=== PATIENT | male | born 1980 | race American Indian/Alaskan Native ===

== ENCOUNTER 2019-04-26 12:34 | Inpatient (IN) | payer OTHER ==
[2019-04-26] MEDS ORDERED: NACL 0.9% 1000 ML IV ONE ×2 (12:48→13:10)
--- NOTE | 2019-04-26 12:54 | Event Note ---
ED Screening Note ED Screening Note: TO TRIAGE VIA EMS AGITATED AND DC INT PER EMS NO TRAUMA REPORTED FROM EMS PER RN LETHARGIC IN TRIAGE - AMS DIAPHORETIC WITH NORMAL TEMP DENIES PMH/PSH/RX DENIES DRUGS/ETOH/CIG POOR INFORMANT DUE TO LETHARGY CHARGE NURSE AWARE This initial assessment/diagnostic orders/clinical plan/treatment(s) is/are subject to change based on patients health status, clinical progression and re- assessment by fellow clinical providers in the ED. Further treatment and workup at subsequent clinical providers discretion. Patient/guardian urged not to elope from the ED as their condition may be serious if not clinically assessed and managed. Initial orders include: AMS- RO SEPSIS/DEHYDRATION/ACUTE NEURO EVENT/RO ACS TO MAIN
--- NOTE | 2019-04-26 13:33 | XRay Report ---
CHEST 1 VIEW INDICATION: chills, DIAPHORETIC, NAUSEA VOMITTING. COMPARISON: None FINDINGS: SUPPORT DEVICES: None. HEART / MEDIASTINUM: No significant abnormality. LUNGS / PLEURA: No significant pulmonary or pleural abnormality. No pneumothorax. ADDITIONAL FINDINGS: IMPRESSION: 1. No acute findings. Signer Name: Orlin Sosa MD Signed: 04/26/2019 1:29 PM Workstation Name: [id number]
[2019-04-26 13:40] LABS: Amphetamine Screen,Urine PRESUMPTIVE NEGATIVE; Benzodiazepines Screen,Urine PRESUMPTIVE NEGATIVE; Cocaine Screen,Urine PRESUMPTIVE NEGATIVE; Methadone Screen,Urine PRESUMPTIVE NEGATIVE; Opiate Screen,Urine PRESUMPTIVE NEGATIVE
[2019-04-26] MEDS ORDERED: ZOFRAN ONE (13:44)
[2019-04-26 13:49] LABS: Mucus,Urine 3+ /HPF
[2019-04-26] MEDS ORDERED: ROCEPHIN/NS 2 GM/100 ML 2 GM/100 ML BAG IV ONE (13:49)
[2019-04-26 13:50] LABS: Bilirubin,Urine NEG (Negative); Blood,Urine NEG (Negative); Color,Urine Amber (Yellow); Urobilinogen,Urine < 2.0 mg/dL (<2.0)
[2019-04-26] MEDS ORDERED: ZOFRAN IV ONE (13:52)
[2019-04-26 13:56] LABS: Cannabinoid Screen,Urine PRESUMPTIVE POSITIVE
[2019-04-26] MEDS: NACL 0.9% 1000 ML 1,000 ML IV SCH (14:20)
[2019-04-26 14:37] LABS: Basophils # (Auto) 0.1 K/mm3 (0.0-0.1); Basophils % (Auto) 0.5 % (0.0-1.8); Hematocrit 48.3 % (35.5-45.6); Hemoglobin 16.3 gm/dl (11.8-15.2); Lymphocytes # (Auto) 1.5 K/mm3 (1.2-5.4); Lymphocytes % (Auto) 13.6 % (13.4-35.0); Mean Corpuscular HGB Conc 34 % (32-34); Mean Corpuscular Volume 86 fl (84-94); Monocytes # (Auto) 0.3 K/mm3 (0.0-0.8); Monocytes % (Auto) 2.8 % (0.0-7.3); Platelet Count 377 K/mm3 (140-440); Red Blood Count 5.64 M/mm3 (3.65-5.03); Red Cell Distribution Width 13.8 % (13.2-15.2)
[2019-04-26 14:47] LABS: INR 1.04 (0.87-1.13)
[2019-04-26 14:48] LABS: Partial Thromboplastin Time 26.4 Sec. (24.2-36.6)
[2019-04-26 15:00] LABS: Creatine Kinase MB 3.4 ng/mL (0.0-4.0)
[2019-04-26 15:02] LABS: Alanine Aminotransferase 24 units/L (7-56); BUN/Creatinine Ratio 14; Blood Urea Nitrogen 15 mg/dL (9-20); Calcium 10.3 mg/dL (8.4-10.2); Hemolysis Index 64
--- NOTE | 2019-04-26 15:06 | Emergency Department Report ---
ED General Adult HPI - General Chief complaint: Altered Mental Status Stated complaint: N/V Time Seen by Provider: 04/26/19 12:48 Source: patient Mode of arrival: Wheelchair Limitations: No Limitations - History of Present Illness Initial comments: 39-year-old man who woke up this morning sweaty and nauseated. He is a very poor historian. He is also poorly cooperative and difficult pain in the gurney. With a lot of encouragement, I was able to get historical information from him. He states he has had this once before, a few weeks ago. It resolved on its own and he did not go to get medical evaluation. He states that he is only taking Benadryl and Zyrtec for eczema. Denies any other medical history or previous surgery. Later he began to cough frequently and appears to be having posttussive emesis at the time of my encounter. He does not complain of shortness of breath. His pulse oximetry is 100%. His upper abdominal pain has resolved. He denied any chest pain pressure or tightness. He denied back pain. He stated the pain did not radiate. He stated he had a bowel movement but was not diarrhea. He had no signs of apparent GI bleeding. He presented to triage very diaphoretic. -: unknown (upon awakening) Location: abdomen Radiation: non-radiation Quality: aching Consistency: constant Improves with: none Worsens with: none Associated Symptoms: denies other symptoms - Related Data Home Medications Medication Instructions Recorded Confirmed Last Taken Cetirizine HCl [Zyrtec 10mg tab] 10 mg PO QDAY 04/26/19 04/26/19 04/26/19 diphenhydrAMINE [Benadryl CAP] 25 mg PO QHS 04/26/19 04/26/19 04/25/19 Allergies Allergy/AdvReac Type Severity Reaction Status Date / Time No Known Allergies Allergy Unverified 04/26/19 12:40 ED Review of Systems ROS: Stated complaint: N/V Other details as noted in HPI ED Past Medical Hx - Past Medical History Previous Medical History?: No - Surgical History Past Surgical History?: No - Social History Smoking Status: Current Every Day Smoker Substance Use Type: None - Medications Home Medications: Home Medications Medication Instructions Recorded Confirmed Last Taken Type Cetirizine HCl [Zyrtec 10mg tab] 10 mg PO QDAY 04/26/19 04/26/19 04/26/19 History diphenhydrAMINE [Benadryl CAP] 25 mg PO QHS 04/26/19 04/26/19 04/25/19 History ED Physical Exam - General Limitations: No Limitations ED Course Vital Signs 04/26/19 04/26/19 04/26/19 12:52 13:37 13:45 Temperature 97.4 F L Pulse Rate 72 Respiratory 22 Rate Blood Pressure 148/109 Blood Pressure [Right] O2 Sat by Pulse 100 98 100 Oximetry 04/26/19 04/26/19 04/26/19 13:49 14:00 14:15 Temperature 97.1 F L Pulse Rate 78 72 69 Respiratory 20 14 17 Rate Blood Pressure 153/107 158/106 Blood Pressure 158/106 [Right] O2 Sat by Pulse 98 100 97 Oximetry 04/26/19 14:31 Temperature Pulse Rate Respiratory Rate Blood Pressure 158/106 Blood Pressure [Right] O2 Sat by Pulse 100 Oximetry - Reevaluation(s) Reevaluation #1: On reexamination the patient has no shortness of breath. He is no longer sweating. He had some persistent nausea but is not vomiting. He has some nonproductive cough. He denies chest or abdominal pain. I repeated his EKG which shows some mild diffuse J-point elevation particularly in the anterior leads. However it is perhaps a little less pronounced than it was on the previous tracing. There is no reciprocal changes. Is not consistent with STEMI. Patient's CT of his head was negative. Urine was consistent with UTI. His abdominal CT showed colitis. Allergic cover him with Flagyl and Zosyn. IV fluids. For further patient for further care and evaluation appropriate consultation to Dr. Anders. Serial troponins are pending. Further diagnostic workup per Dr. Anders. Repeat evaluation of the patient's abdomen found it to be totally soft nontender without distention and normal bowel sounds present. 04/26/19 15:56 ED Medical Decision Making - Lab Data Result diagrams: 04/26/19 14:06 04/26/19 14:06 Laboratory Results - last 24 hr 04/26/19 04/26/19 04/26/19 12:54 13:23 13:23 WBC RBC Hgb Hct MCV MCH MCHC RDW Plt Count Lymph % (Auto) [place] % (Auto) Eos % (Auto) Baso % (Auto) Lymph # [place] # Eos # Baso # Seg Neutrophils % Seg Neutrophils # PT INR APTT Sodium Potassium Chloride Carbon Dioxide Anion Gap BUN Creatinine Estimated GFR BUN/Creatinine Ratio Glucose POC Glucose 140 H Lactic Acid Calcium Magnesium Total Bilirubin ALT Alkaline Phosphatase Total Creatine Kinase CK-MB (CK-2) CK-MB (CK-2) Rel Index Troponin T NT-Pro-B Natriuret Pep Total Protein Albumin Albumin/Globulin Ratio Lipase Urine Color Dariela Urine Turbidity Cloudy Urine pH 5.0 Ur Specific [place] 1.032 H Urine Protein 100 mg/dl Urine Glucose (UA) Neg Urine Ketones 20 Urine Blood Neg Urine Nitrite Neg Ur Reducing Substances Not Reportable Urine Bilirubin Neg Urine Ictotest Not Reportable Urine Urobilinogen < 2.0 Ur Leukocyte Esterase Sm Urine WBC (Auto) 26.0 H Urine RBC (Auto) 3.0 U Epithel Cells (Auto) 1.0 Urine Mucus 3+ Urine Opiates Screen Presumptive negative Urine Methadone Screen Presumptive negative Ur Barbiturates Screen Presumptive negative Ur Phencyclidine Scrn Presumptive negative Ur Amphetamines Screen Presumptive negative U Benzodiazepines Scrn Presumptive negative Urine Cocaine Screen Presumptive negative U Marijuana (THC) Screen Presumptive positive Drugs of Abuse Note Disclamer Blood Type 04/26/19 04/26/19 04/26/19 13:41 14:06 14:06 WBC 11.0 RBC 5.64 H Hgb 16.3 H Hct 48.3 H MCV 86 MCH 29 MCHC 34 RDW 13.8 Plt Count 377 Lymph % (Auto) 13.6 [place] % (Auto) 2.8 Eos % (Auto) 0.0 Baso % (Auto) 0.5 Lymph # 1.5 [place] # 0.3 Eos # 0.0 Baso # 0.1 Seg Neutrophils % 83.1 H Seg Neutrophils # 9.2 H PT INR APTT Sodium 141 Potassium 3.7 Chloride 103.4 Carbon Dioxide 18 L Anion Gap 23 BUN 15 Creatinine 1.1 Estimated GFR > 60 BUN/Creatinine Ratio 14 Glucose 172 H POC Glucose Lactic Acid Calcium 10.3 H Magnesium 1.90 Total Bilirubin 0.40 ALT 24 Alkaline Phosphatase 87 Total Creatine Kinase CK-MB (CK-2) CK-MB (CK-2) Rel Index Troponin T < 0.010 NT-Pro-B Natriuret Pep Total Protein 8.5 H Albumin 5.0 Albumin/Globulin Ratio 1.4 Lipase 18 Urine Color Urine Turbidity Urine pH Ur Specific [place] Urine Protein Urine Glucose (UA) Urine Ketones Urine Blood Urine Nitrite Ur Reducing Substances Urine Bilirubin Urine Ictotest Urine Urobilinogen Ur Leukocyte Esterase Urine WBC (Auto) Urine RBC (Auto) U Epithel Cells (Auto) Urine Mucus Urine Opiates Screen Urine Methadone Screen Ur Barbiturates Screen Ur Phencyclidine Scrn Ur Amphetamines Screen U Benzodiazepines Scrn Urine Cocaine Screen U Marijuana (THC) Screen Drugs of Abuse Note Blood Type A POSITIVE 04/26/19 04/26/19 04/26/19 14:06 14:06 14:06 WBC RBC Hgb Hct MCV MCH MCHC RDW Plt Count Lymph % (Auto) [place] % (Auto) Eos % (Auto) Baso % (Auto) Lymph # [place] # Eos # Baso # Seg Neutrophils % Seg Neutrophils # PT 13.3 INR 1.04 APTT 26.4 Sodium Potassium Chloride Carbon Dioxide Anion Gap BUN Creatinine Estimated GFR BUN/Creatinine Ratio Glucose POC Glucose Lactic Acid 3.50 H* Calcium Magnesium Total Bilirubin ALT Alkaline Phosphatase Total Creatine Kinase 417 H CK-MB (CK-2) 3.4 CK-MB (CK-2) Rel Index 0.8 Troponin T NT-Pro-B Natriuret Pep < 5 Total Protein Albumin Albumin/Globulin Ratio Lipase Urine Color Urine Turbidity Urine pH Ur Specific [place] Urine Protein Urine Glucose (UA) Urine Ketones Urine Blood Urine Nitrite Ur Reducing Substances Urine Bilirubin Urine Ictotest Urine Urobilinogen Ur Leukocyte Esterase Urine WBC (Auto) Urine RBC (Auto) U Epithel Cells (Auto) Urine Mucus Urine Opiates Screen Urine Methadone Screen Ur Barbiturates Screen Ur Phencyclidine Scrn Ur Amphetamines Screen U Benzodiazepines Scrn Urine Cocaine Screen U Marijuana (THC) Screen Drugs of Abuse Note Blood Type - EKG Data -: EKG Interpreted by Me EKG shows normal: sinus rhythm - EKG Data Interpretation: other (see above discussion serial EKGs were reviewed) - Radiology Data Radiology results: report reviewed (head no acute process, abdomen consistent with colitis) Critical care attestation.: If time is entered above; I have spent that time in minutes in the direct care of this critically ill patient, excluding procedure time. ED Disposition Clinical Impression: Colitis, Elevated lactic acid level, Abnormal EKG UTI (urinary tract infection) Qualifiers: Urinary tract infection type: site unspecified Hematuria presence: without hematuria Qualified Code(s): N39.0 - Urinary tract infection, site not specified Abdominal pain Qualifiers: Abdominal location: epigastric Qualified Code(s): R10.13 - Epigastric pain Disposition: -09 OP ADMIT IP TO THIS HOSP Is pt being admited?: Yes Does the pt Need Aspirin: Yes Condition: Stable Time of Disposition: 15:58
[2019-04-26] MEDS ORDERED: ZOSYN/NS 4.5GM/100ML 4.5 GM/100 ML VIAL IV ONE (15:09)
--- NOTE | 2019-04-26 15:27 | Cat Scan Report ---
CT ABDOMEN AND PELVIS WITHOUT CONTRAST HISTORY: Abdominal pain, epigastric pain COMPARISON: None. TECHNIQUE: Axial CT images were obtained through the abdomen and pelvis without IV contrast. Sagittal and coronal reformatted images. All CT scans at this location are performed using CT dose reduction for ALARA by means of automated exposure control. FINDINGS: CT ABDOMEN: Lung Bases: Clear. Liver: No significant abnormality. Biliary: No significant abnormality. Spleen: No significant abnormality. Unenlarged. Pancreas: No significant abnormality. Adrenals: No significant abnormality. Kidneys: No significant abnormality. Lymphatics: No lymphadenopathy. Vasculature: No significant abnormality. Bowel/Peritoneum: The colon is collapsed but there is suggestion of mild circumferential thickening o f the colon wall. A mild colitis could be considered. No inflammatory changes, free fluid or pneumato sis. Normal appendix. CT PELVIS: : No significant abnormality. Osseous Structures: No significant abnormality. Additional Findings: None IMPRESSION: Question mild colitis. Otherwise, unremarkable exam. Signer Name: Esteban Harp Jr, MD Signed: 04/26/2019 3:23 PM Workstation Name: [id number]
--- NOTE | 2019-04-26 15:30 | Cat Scan Report ---
CT head/brain wo con INDICATION / CLINICAL INFORMATION: 39 years Male; ams. TECHNIQUE: Routine CT head without contrast. All CT scans at this location are performed using CT dos e reduction for ALARA by means of automated exposure control. COMPARISON: None. FINDINGS: BRAIN / INTRACRANIAL CONTENTS: Small focus of decreased attenuation is seen in the periventricular re gion on the right, along the posterior body of the caudate. Age of this finding is indeterminate with out diffusion imaging by MRI. Otherwise, no acute hemorrhage, mass effect, midline shift, hydrocephalus, or acute, large territoria l infarct. No chronic infarct or focal atrophy. Normal brain volume and ventricular/sulcal size for a ge. No other significant white matter abnormality appreciated. CRANIOCERVICAL JUNCTION: No significant abnormality. ORBITS: No significant abnormality of visualized orbits. SINUSES / MASTOIDS: There is mild mucosal thickening in the ethmoids. Small mucous retention cyst/oren yp is seen in the left maxillary antrum. ADDITIONAL FINDINGS: None. IMPRESSION: 1. No focal mass, hemorrhage, hydrocephalus, or acute, large territorial infarct. Diffusion imaging m ay be helpful for further evaluation, if clinically warranted. Signer Name: Margarito Churchill MD, III Signed: 04/26/2019 3:25 PM Workstation Name: [id number]
[2019-04-26] MEDS ORDERED: ASPIRIN PO ONE (15:58)
[2019-04-26] MEDS ORDERED: NACL 0.9% 1000 ML 1,000 ML IV ONE (15:59)
[2019-04-26] MEDS: FLAGYL 500 MG/100 ML 500 MG/100 ML BAG IV SCH (16:45)
[2019-04-26] MEDS ORDERED: DILAUDID IV PRN (20:51)
[2019-04-26] MEDS ORDERED: SODIUM CHLORIDE FLUSH SYRINGE 10 ML IV PRN (20:51)
[2019-04-26] MEDS ORDERED: PHENERGAN PR PRN (20:51)
--- NOTE | 2019-04-26 21:24 | Event Note ---
Date: 04/26/19 See history and physical in the reports Acute colitis Urinary tract infection IV fluids
--- NOTE | 2019-04-26 21:56 | History and Physical Report ---
CHIEF COMPLAINT: 1. Altered sensorium. 2. Persistent vomiting. HISTORY OF PRESENT ILLNESS: A 39-year-old male with no significant past medical history, comes in for severe nausea, diaphoresis and persistent vomiting. The patient is a poor historian. Apparently, the patient has been vomiting since yesterday. Vomited about 10-15 times. Also coughing. No back pain. No diarrhea. Only vomiting. No fever or chills. Had some dysuria. PAST MEDICAL HISTORY: None. PAST SURGICAL HISTORY: None. SOCIAL HISTORY: Smokes about half a pack a day. FAMILY HISTORY: Hypertension. REVIEW OF SYSTEMS: Significant for persistent nausea, vomiting for about last 24 hours. Occasional abdominal pain. Diaphoresis. Otherwise, review of systems negative. PHYSICAL EXAMINATION: GENERAL: Young male, cooperative during examination. Slightly confused. VITAL SIGNS: Blood pressure is 158/106, temperature is 98, pulse is 59-87, respirations are 14, sats are 100%. HEENT: Unremarkable. Pupils equal and reactive. NECK: Supple, no lymphadenopathy, no thyromegaly. LUNGS: Clear to auscultation and percussion. Good air entry. CARDIOVASCULAR: S1, S2 heard. No gallop, no murmur, no rub. Apical impulse in left fifth intercostal space and midclavicular line. ABDOMEN: Soft and benign. No hepatosplenomegaly. No guarding, no rigidity. Hernial orifices are normal. EXTREMITIES: Good pedal pulses. No pedal edema. CENTRAL NERVOUS SYSTEM: Alert and oriented x 4, nonfocal exam. SKIN: Normal. LABORATORY DATA: White count 11,000, H and H is 16.3 and 48.3, platelet count is 377,000. Sodium is 141, potassium is 3.7, BUN and creatinine is 15 and 1.1. Lactic acid is 2.4, total CK is 417. Urine significant for wbc's of 26. Urine drug screen significant for marijuana being positive. CAT scan of the abdomen shows mild colitis, otherwise, unremarkable exam. CT of the head is normal. ASSESSMENT AND PLAN: 1. Acute colitis. Conservative treatment at this point. Gastroenterology consult requested. The patient may not need a colonoscopy. We will defer to Gastroenterology. Intravenous fluids for the time being. Symptomatic treatment with intravenous Zofran and IV Reglan. 2. Urinary tract infection. The patient is started on intravenous Rocephin. 3. Elevated lactic acid, multifactorial secondary to persistent vomiting and also urinary tract infection and colitis. No evidence of sepsis. Only intravenous Rocephin for the time being. 4. Deep venous thrombosis prophylaxis, Lovenox 40 mg subcutaneous daily. In summary, the patient has acute colitis and elevated lactic acid secondary to colitis and vomiting, urinary tract infection and dehydration. JOB# [id number] DERIK/DAVID
[2019-04-26] MEDS ORDERED: ROCEPHIN/NS 2 GM/100 ML 2 GM/100 ML BAG IV SCH (22:00)
[2019-04-26] MEDS: PROTONIX IV SCH (22:58)
[2019-04-26] MEDS: ZOFRAN IV PRN (22:58)
[2019-04-26] MEDS: LOVENOX SUB-Q SCH (22:58)
[2019-04-26] MEDS: SODIUM CHLORIDE FLUSH SYRINGE 10 ML IV SCH (23:38)
[2019-04-27] MEDS: FLAGYL 500 MG/100 ML 500 MG/100 ML BAG IV SCH ×3 (01:04→17:37)
[2019-04-27] MEDS: NACL 0.9% 1000 ML 1,000 ML IV SCH ×3 (01:04→23:22)
[2019-04-27] MEDS: LEVAQUIN 500MG/100ML 500 MG/100 ML BAG IV SCH ×2 (01:05→11:02)
[2019-04-27] MEDS: ZOFRAN IV PRN (06:48)
[2019-04-27] MEDS: PROTONIX IV SCH ×2 (11:02→21:48)
[2019-04-27] MEDS: REGLAN IV PRN (11:02)
[2019-04-27] MEDS: SODIUM CHLORIDE FLUSH SYRINGE 10 ML IV SCH ×2 (11:05→21:48)
--- NOTE | 2019-04-27 15:22 | Progress Note ---
Assessment and Plan - Patient Problems (1) Abdominal pain Current Visit: Yes Status: Acute Qualifiers: Abdominal location: epigastric Qualified Code(s): R10.13 - Epigastric pain Plan to address problem: Patient abdominal pain is most likely referred pain secondary to UTI possible pyelonephritis. (2) UTI (urinary tract infection) Current Visit: Yes Status: Acute Qualifiers: Urinary tract infection type: site unspecified Hematuria presence: without hematuria Qualified Code(s): N39.0 - Urinary tract infection, site not specified Plan to address problem: Patient with UTI with dysuria on physical exam. Patient had episode of nausea and vomiting and this was most likely secondary to UTI. Much better after being treated with IV antibiotics. Will start in change patient to Levaquin and Flagyl in the tips for discharge in a.m. History Interval history: Patient is feeling better. Patient is attempting to eat. Did fairly well with clear liquid diet. Flank pain is resolved no dysuria. Low-grade fever. MAXIMUM TEMPERATURE of 99. MAXIMUM TEMPERATURE 99. Hospitalist Physical - Constitutional Vitals: Temp Pulse Resp BP Pulse Ox 98.6 F 66 14 100/60 100 04/27/19 11:45 04/27/19 11:45 04/27/19 11:45 04/27/19 11:45 04/27/19 11:45 General appearance: Present: mild distress, cachectic - EENT Eyes: Present: PERRL, EOM intact. Absent: irregular pupil, scleral icterus, conjunctival injection, exopthalmos, miosis, mydriasis ENT: no hearing intact, no hearing decreased - Neck Neck: Absent: rigidity - Respiratory Respiratory: bilateral: diminished, wheezing - Cardiovascular Rhythm: regular Heart Sounds: Present: S1 & S2 - Extremities Extremities: no ischemia, pulses intact, pulses symmetrical, No edema, normal temperature, normal color Peripheral Pulses: within normal limits - Abdominal General gastrointestinal: soft, non-tender, distended, rigid, normal bowel sounds, hypoactive bowel sounds, no splenomegaly, no mass - Integumentary Integumentary: Present: clear, warm, dry - Psychiatric Psychiatric: appropriate mood/affect - Neurologic Neurologic: CNII-XII intact, no focal deficits, moves all extremities Results - Labs CBC & Chem 7: 04/26/19 14:06 04/26/19 14:06 Labs: Laboratory Last Values WBC 11.0 K/mm3 (4.5-11.0) 04/26/19 14:06 RBC 5.64 M/mm3 (3.65-5.03) H 04/26/19 14:06 Hgb 16.3 gm/dl (11.8-15.2) H 04/26/19 14:06 Hct 48.3 % (35.5-45.6) H 04/26/19 14:06 MCV 86 fl (84-94) 04/26/19 14:06 MCH 29 pg (28-32) 04/26/19 14:06 MCHC 34 % (32-34) 04/26/19 14:06 RDW 13.8 % (13.2-15.2) 04/26/19 14:06 Plt Count 377 K/mm3 (140-440) 04/26/19 14:06 Lymph % (Auto) 13.6 % (13.4-35.0) 04/26/19 14:06 [place] % (Auto) 2.8 % (0.0-7.3) 04/26/19 14:06 Eos % (Auto) 0.0 % (0.0-4.3) 04/26/19 14:06 Baso % (Auto) 0.5 % (0.0-1.8) 04/26/19 14:06 Lymph # 1.5 K/mm3 (1.2-5.4) 04/26/19 14:06 [place] # 0.3 K/mm3 (0.0-0.8) 04/26/19 14:06 Eos # 0.0 K/mm3 (0.0-0.4) 04/26/19 14:06 Baso # 0.1 K/mm3 (0.0-0.1) 04/26/19 14:06 Seg Neutrophils % 83.1 % (40.0-70.0) H 04/26/19 14:06 Seg Neutrophils # 9.2 K/mm3 (1.8-7.7) H 04/26/19 14:06 PT 13.3 Sec. (12.2-14.9) 04/26/19 14:06 INR 1.04 (0.87-1.13) 04/26/19 14:06 APTT 26.4 Sec. (24.2-36.6) 04/26/19 14:06 Sodium 141 mmol/L (137-145) 04/26/19 14:06 Potassium 3.7 mmol/L (3.6-5.0) 04/26/19 14:06 Chloride 103.4 mmol/L (98-107) 04/26/19 14:06 Carbon Dioxide 18 mmol/L (22-30) L 04/26/19 14:06 23 mmol/L 04/26/19 14:06 BUN 15 mg/dL (9-20) 04/26/19 14:06 1.1 mg/dL (0.8-1.5) 04/26/19 14:06 Estimated GFR > 60 ml/min 04/26/19 14:06 14 % 04/26/19 14:06 Glucose 172 mg/dL (75-100) H 04/26/19 14:06 POC Glucose 140 (70-105) H 04/26/19 12:54 Lactic Acid 1.10 mmol/L (0.7-2.0) 04/27/19 04:46 Calcium 10.3 mg/dL (8.4-10.2) H 04/26/19 14:06 Magnesium 1.90 mg/dL (1.7-2.3) 04/26/19 14:06 0.40 mg/dL (0.1-1.2) 04/26/19 14:06 AST 21 units/L (5-40) 04/26/19 14:06 ALT 24 units/L (7-56) 04/26/19 14:06 87 units/L (35-129) 04/26/19 14:06 417 units/L (55-170) H 04/26/19 14:06 CK-MB (CK-2) 3.4 ng/mL (0.0-4.0) 04/26/19 14:06 CK-MB (CK-2) Rel Index 0.8 (0-4) 04/26/19 14:06 < 0.010 ng/mL (0.00-0.029) 04/26/19 16:28 NT-Pro-B Natriuret Pep < 5 pg/mL (0-450) 04/26/19 14:06 8.5 g/dL (6.3-8.2) H 04/26/19 14:06 5.0 g/dL (3.9-5) 04/26/19 14:06 1.4 % 04/26/19 14:06 18 units/L (13-60) 04/26/19 14:06 TSH 0.687 mlU/mL (0.270-4.200) 04/26/19 14:06 Dariela (Yellow) 04/26/19 13:23 Cloudy (Clear) 04/26/19 13:23 5.0 (5.0-7.0) 04/26/19 13:23 Ur Specific [place] 1.032 (1.003-1.030) H 04/26/19 13:23 100 mg/dl mg/dL (Negative) 04/26/19 13:23 Neg mg/dL (Negative) 04/26/19 13:23 20 mg/dL (Negative) 04/26/19 13:23 Neg (Negative) 04/26/19 13:23 Neg (Negative) 04/26/19 13:23 Ur Reducing Substances Not Reportable 04/26/19 13:23 Neg (Negative) 04/26/19 13:23 Not Reportable 04/26/19 13:23 < 2.0 mg/dL (<2.0) 04/26/19 13:23 Ur Leukocyte Esterase Sm (Negative) 04/26/19 13:23 26.0 /HPF (0.0-6.0) H 04/26/19 13:23 3.0 /HPF (0.0-6.0) 04/26/19 13:23 U Epithel Cells (Auto) 1.0 /HPF (0-13.0) 04/26/19 13:23 3+ /HPF 04/26/19 13:23 Presumptive negative 04/26/19 13:23 Presumptive negative 04/26/19 13:23 Ur Barbiturates Screen Presumptive negative 04/26/19 13:23 Ur Phencyclidine Scrn Presumptive negative 04/26/19 13:23 Ur Amphetamines Screen Presumptive negative 04/26/19 13:23 U Benzodiazepines Scrn Presumptive negative 04/26/19 13:23 Presumptive negative 04/26/19 13:23 U Marijuana (THC) Screen Presumptive positive 04/26/19 13:23 Disclamer 04/26/19 13:23 Blood Type A POSITIVE 04/26/19 13:41 Antibody Screen Negative 04/26/19 13:41 Active Medications - Current Medications Current Medications: Generic Name Dose Route Start Last Admin Trade Name Cindy PRN Reason Stop Dose Admin Acetaminophen 650 mg 04/26/19 20:51 Tylenol PO Q4H PRN Pain MILD(1-3)/Fever >100.5/FLORES Enoxaparin Sodium 40 mg 04/26/19 22:00 04/26/19 22:58 Lovenox SUB-Q 40 mg QDAY@2200 JOHANA Administration Hydromorphone HCl 0.5 mg 04/26/19 20:51 Dilaudid IV Q3H PRN Pain , Severe (7-10) Sodium Chloride 1,000 mls @ 125 mls/hr 04/26/19 15:00 04/27/19 11:02 Nacl 0.9% 1000 Ml IV 125 mls/hr DIRECT JOHANA Administration Metronidazole 500 mg in 100 mls @ 100 mls/hr 04/26/19 16:00 04/27/19 11:02 Flagyl 500 Mg/100 Ml IV 100 mls/hr Q8H JOHANA Administration Protocol Levofloxacin/Dextrose 500 mg in 100 mls @ 100 mls/hr 04/27/19 00:01 04/27/19 11:02 Levaquin 500mg/100ml IV 100 mls/hr Q24HR JOHANA Administration Protocol Metoclopramide HCl 10 mg 04/26/19 20:51 04/27/19 11:02 Reglan IV 10 mg Q6H PRN Administration Nausea And Vomiting Ondansetron HCl 4 mg 04/26/19 20:51 04/27/19 06:48 Zofran IV 4 mg Q3H PRN Administration Nausea And Vomiting Pantoprazole Sodium 40 mg 04/26/19 22:00 04/27/19 11:02 Protonix IV 40 mg BID JOHANA Administration Promethazine HCl 25 mg 04/26/19 20:51 Phenergan [place] Q6H PRN N/V IF NPO AND NO IV ACCESS Sodium Chloride 10 ml 04/26/19 22:00 04/27/19 11:05 Sodium Chloride Flush Syringe 10 Ml IV 10 ml BID JOHANA Administration Sodium Chloride 10 ml 04/26/19 20:51 Sodium Chloride Flush Syringe 10 Ml IV PRN PRN LINE FLUSH
[2019-04-27] MEDS: LOVENOX SUB-Q SCH (21:42)
[2019-04-28] MEDS: FLAGYL 500 MG/100 ML 500 MG/100 ML BAG IV SCH ×3 (00:14→16:10)
[2019-04-28] MEDS: ZOFRAN IV PRN ×3 (07:35→16:10)
[2019-04-28] MEDS: NACL 0.9% 1000 ML 1,000 ML IV SCH ×2 (07:39→22:27)
[2019-04-28] MEDS: REGLAN IV PRN (08:16)
[2019-04-28] MEDS: PROTONIX PO SCH (10:12)
[2019-04-28] MEDS: LEVAQUIN 500MG/100ML 500 MG/100 ML BAG IV SCH (10:12)
[2019-04-28] MEDS: SODIUM CHLORIDE FLUSH SYRINGE 10 ML IV SCH ×2 (10:15→22:26)
[2019-04-28 11:47] LABS: Basophils % (Auto) 0.4 % (0.0-1.8); Hematocrit 41.9 % (35.5-45.6); Hemoglobin 14.2 gm/dl (11.8-15.2); Lymphocytes # (Auto) 1.4 K/mm3 (1.2-5.4); Lymphocytes % (Auto) 17.2 % (13.4-35.0); Mean Corpuscular HGB Conc 34 % (32-34); Mean Corpuscular Volume 87 fl (84-94); Monocytes # (Auto) 0.4 K/mm3 (0.0-0.8); Monocytes % (Auto) 4.2 % (0.0-7.3); Platelet Count 263 K/mm3 (140-440); Red Blood Count 4.85 M/mm3 (3.65-5.03); Red Cell Distribution Width 13.7 % (13.2-15.2)
[2019-04-28 12:06] LABS: Alanine Aminotransferase 25 units/L (7-56); Albumin 4.1 g/dL (3.9-5); BUN/Creatinine Ratio 10; Blood Urea Nitrogen 11 mg/dL (9-20); Calcium 8.8 mg/dL (8.4-10.2); Hemolysis Index 22
--- NOTE | 2019-04-28 14:09 | Progress Note ---
Assessment and Plan - Patient Problems (1) Abdominal pain Current Visit: Yes Status: Acute Qualifiers: Abdominal location: epigastric Qualified Code(s): R10.13 - Epigastric pain Plan to address problem: Dominant pain one episode of nausea vomiting since beginning treatment. We'll continue antibiotics Flagyl and Levaquin. Continue to advance diet patient tolerated everything well just this one time period and it was normal with water. Plan will be discharged in a.m. (2) UTI (urinary tract infection) Current Visit: Yes Status: Acute Qualifiers: Urinary tract infection type: site unspecified Hematuria presence: without hematuria Qualified Code(s): N39.0 - Urinary tract infection, site not specified Plan to address problem: Continue present treatment. Patient has no flank pain white count has improved and fever curve has down trended. History Interval history: Patient Hospital course today complicated by episodes of nausea and vomiting only with water. Patient stated this time he had headache upon standing up which made him nauseated. Patient did not abdominal pain no rectal pain treated with Zofran. Mother at the bedside and all questions and concerns answered appropriately. Plan for discharge in a.m. Hospitalist Physical - Constitutional Vitals: Temp Pulse Resp BP Pulse Ox 98.0 F 71 18 130/92 98 04/28/19 11:26 04/28/19 11:26 04/28/19 11:26 04/28/19 11:26 04/28/19 11:26 General appearance: Present: mild distress, cachectic - EENT Eyes: Present: PERRL, EOM intact ENT: hearing intact, clear oral mucosa, dentition normal - Neck Neck: Present: supple, normal ROM - Respiratory Respiratory: bilateral: CTA - Cardiovascular Rhythm: regular Heart Sounds: Present: S1 & S2 - Extremities Extremities: pulses intact, pulses symmetrical - Abdominal General gastrointestinal: soft, non-tender, non-distended, normal bowel sounds, no distended, no rigid, no hypoactive bowel sounds, no absent bowel sounds, no hepatomegaly, no splenomegaly - Integumentary Integumentary: Present: clear, warm, dry - Psychiatric Psychiatric: appropriate mood/affect, intact judgment & insight, memory intact - Neurologic Neurologic: CNII-XII intact, moves all extremities Results - Labs CBC & Chem 7: 04/28/19 10:46 04/28/19 10:46 Labs: Laboratory Last Values WBC 8.4 K/mm3 (4.5-11.0) 04/28/19 10:46 RBC 4.85 M/mm3 (3.65-5.03) 04/28/19 10:46 Hgb 14.2 gm/dl (11.8-15.2) 04/28/19 10:46 Hct 41.9 % (35.5-45.6) D 04/28/19 10:46 MCV 87 fl (84-94) 04/28/19 10:46 MCH 29 pg (28-32) 04/28/19 10:46 MCHC 34 % (32-34) 04/28/19 10:46 RDW 13.7 % (13.2-15.2) 04/28/19 10:46 Plt Count 263 K/mm3 (140-440) 04/28/19 10:46 Lymph % (Auto) 17.2 % (13.4-35.0) 04/28/19 10:46 [place] % (Auto) 4.2 % (0.0-7.3) 04/28/19 10:46 Eos % (Auto) 0.0 % (0.0-4.3) 04/28/19 10:46 Baso % (Auto) 0.4 % (0.0-1.8) 04/28/19 10:46 Lymph # 1.4 K/mm3 (1.2-5.4) 04/28/19 10:46 [place] # 0.4 K/mm3 (0.0-0.8) 04/28/19 10:46 Eos # 0.0 K/mm3 (0.0-0.4) 04/28/19 10:46 Baso # 0.0 K/mm3 (0.0-0.1) 04/28/19 10:46 Seg Neutrophils % 78.2 % (40.0-70.0) H 04/28/19 10:46 Seg Neutrophils # 6.5 K/mm3 (1.8-7.7) 04/28/19 10:46 PT 13.3 Sec. (12.2-14.9) 04/26/19 14:06 INR 1.04 (0.87-1.13) 04/26/19 14:06 APTT 26.4 Sec. (24.2-36.6) 04/26/19 14:06 Sodium 140 mmol/L (137-145) 04/28/19 10:46 Potassium 3.4 mmol/L (3.6-5.0) L 04/28/19 10:46 Chloride 103.4 mmol/L (98-107) 04/28/19 10:46 Carbon Dioxide 24 mmol/L (22-30) 04/28/19 10:46 16 mmol/L 04/28/19 10:46 BUN 11 mg/dL (9-20) 04/28/19 10:46 1.1 mg/dL (0.8-1.5) 04/28/19 10:46 Estimated GFR > 60 ml/min 04/28/19 10:46 10 % 04/28/19 10:46 Glucose 160 mg/dL (75-100) H 04/28/19 10:46 POC Glucose 140 (70-105) H 04/26/19 12:54 Lactic Acid 1.10 mmol/L (0.7-2.0) 04/27/19 04:46 Calcium 8.8 mg/dL (8.4-10.2) 04/28/19 10:46 Magnesium 1.90 mg/dL (1.7-2.3) 04/26/19 14:06 0.30 mg/dL (0.1-1.2) 04/28/19 10:46 AST 31 units/L (5-40) 04/28/19 10:46 ALT 25 units/L (7-56) 04/28/19 10:46 66 units/L (35-129) 04/28/19 10:46 417 units/L (55-170) H 04/26/19 14:06 CK-MB (CK-2) 3.4 ng/mL (0.0-4.0) 04/26/19 14:06 CK-MB (CK-2) Rel Index 0.8 (0-4) 04/26/19 14:06 < 0.010 ng/mL (0.00-0.029) 04/26/19 16:28 NT-Pro-B Natriuret Pep < 5 pg/mL (0-450) 04/26/19 14:06 7.0 g/dL (6.3-8.2) 04/28/19 10:46 4.1 g/dL (3.9-5) 04/28/19 10:46 1.4 % 04/28/19 10:46 18 units/L (13-60) 04/26/19 14:06 TSH 0.687 mlU/mL (0.270-4.200) 04/26/19 14:06 [place] (Yellow) 04/26/19 13:23 Cloudy (Clear) 04/26/19 13:23 5.0 (5.0-7.0) 04/26/19 13:23 Ur Specific [place] 1.032 (1.003-1.030) H 04/26/19 13:23 100 mg/dl mg/dL (Negative) 04/26/19 13:23 Neg mg/dL (Negative) 04/26/19 13:23 20 mg/dL (Negative) 04/26/19 13:23 Neg (Negative) 04/26/19 13:23 Neg (Negative) 04/26/19 13:23 Ur Reducing Substances Not Reportable 04/26/19 13:23 Neg (Negative) 04/26/19 13:23 Not Reportable 04/26/19 13:23 < 2.0 mg/dL (<2.0) 04/26/19 13:23 Ur Leukocyte Esterase Sm (Negative) 04/26/19 13:23 26.0 /HPF (0.0-6.0) H 04/26/19 13:23 3.0 /HPF (0.0-6.0) 04/26/19 13:23 U Epithel Cells (Auto) 1.0 /HPF (0-13.0) 04/26/19 13:23 3+ /HPF 04/26/19 13:23 Presumptive negative 04/26/19 13:23 Presumptive negative 04/26/19 13:23 Ur Barbiturates Screen Presumptive negative 04/26/19 13:23 Ur Phencyclidine Scrn Presumptive negative 04/26/19 13:23 Ur Amphetamines Screen Presumptive negative 04/26/19 13:23 U Benzodiazepines Scrn Presumptive negative 04/26/19 13:23 Presumptive negative 04/26/19 13:23 U Marijuana (THC) Screen Presumptive positive 04/26/19 13:23 Disclamer 04/26/19 13:23 Blood Type A POSITIVE 04/26/19 13:41 Antibody Screen Negative 04/26/19 13:41 Active Medications - Current Medications Current Medications: Generic Name Dose Route Start Last Admin Trade Name Freq PRN Reason Stop Dose Admin Acetaminophen 650 mg 04/26/19 20:51 Tylenol PO Q4H PRN Pain MILD(1-3)/Fever >100.5/FLORES Enoxaparin Sodium 40 mg 04/26/19 22:00 04/27/19 21:42 Lovenox SUB-Q 40 mg QDAY@2200 JOHANA Administration Hydromorphone HCl 0.5 mg 04/26/19 20:51 04/28/19 08:15 Dilaudid IV 0.5 mg Q3H PRN Administration Pain , Severe (7-10) Sodium Chloride 1,000 mls @ 125 mls/hr 04/26/19 15:00 04/28/19 07:39 Nacl 0.9% 1000 Ml IV 125 mls/hr DIRECT JOHANA Administration Metronidazole 500 mg in 100 mls @ 100 mls/hr 04/26/19 16:00 04/28/19 07:39 Flagyl 500 Mg/100 Ml IV 100 mls/hr Q8H JOHANA Administration Protocol Levofloxacin/Dextrose 500 mg in 100 mls @ 100 mls/hr 04/27/19 00:01 04/28/19 10:12 Levaquin 500mg/100ml IV 100 mls/hr Q24HR JOHANA Administration Protocol Metoclopramide HCl 10 mg 04/26/19 20:51 04/28/19 08:16 Reglan IV 10 mg Q6H PRN Administration Nausea And Vomiting Ondansetron HCl 8 mg 04/28/19 09:13 04/28/19 11:06 Zofran IV 8 mg Q4H PRN Administration Nausea And Vomiting Pantoprazole Sodium 40 mg 04/28/19 10:00 04/28/19 10:12 Protonix PO 40 mg DAILY JOHANA Administration Promethazine HCl 25 mg 04/26/19 20:51 Phenergan RI Q6H PRN N/V IF NPO AND NO IV ACCESS Sodium Chloride 10 ml 04/26/19 22:00 04/28/19 10:15 Sodium Chloride Flush Syringe 10 Ml IV 10 ml BID JOHANA Administration Sodium Chloride 10 ml 04/26/19 20:51 Sodium Chloride Flush Syringe 10 Ml IV PRN PRN LINE FLUSH
[2019-04-28] MEDS: TYLENOL PO PRN (15:00)
[2019-04-28] MEDS: LOVENOX SUB-Q SCH (22:26)
[2019-04-29] MEDS: FLAGYL 500 MG/100 ML 500 MG/100 ML BAG IV SCH ×3 (01:24→16:32)
[2019-04-29] MEDS: REGLAN IV PRN ×2 (01:34→14:31)
[2019-04-29] MEDS: NACL 0.9% 1000 ML 1,000 ML IV SCH ×2 (06:39→21:27)
--- NOTE | 2019-04-29 10:23 | Gastroenterology Consultation ---
<JOB EVANS - Last Filed: 04/29/19 10:30> History of Present Illness - Reason for Consult Consult date: 04/29/19 colitis Requesting physician: TIO BARKER - History of Present Illness Patient is a 39 y/o male with no significant PMH who presented to ED with c/o abdominal pain with associated fever, N/V and dysuria. Upon admission, he was found to have a UTI, along with mild colitis seen on CT to which GI has been consulted. This morning patient was resting in bed w/o acute distress. He reports feeling better with abd pain now resolved and N/V improved. Denies CP, SOB, wt loss, dysphagia, signs of bleeding, diarrhea (stools have been loose but not watery), or constipation. States he went on a fishing trip a couple of weeks ago with an episode of similar symptoms at that time as well, but no recent antibiotics or known ill contacts. Symptoms alleviated with hot showers. No hx or Fhx of IBD or GI cancer. No prior EGD/colonoscopy. Uses marijuana a couple of times a month (UDS positive). Past History Past Medical History: other (eczema) Past Surgical History: No surgical history Social history: smoking, other (marijuana) Medications and Allergies Allergies Allergy/AdvReac Type Severity Reaction Status Date / Time Penicillins AdvReac Itching Verified 04/26/19 22:36 Home Medications Medication Instructions Recorded Confirmed Last Taken Type Cetirizine HCl [Zyrtec 10mg tab] 10 mg PO QDAY 04/26/19 04/26/19 04/26/19 History diphenhydrAMINE [Benadryl CAP] 25 mg PO QHS 04/26/19 04/26/19 04/25/19 History Active Meds: Active Medications Acetaminophen (Tylenol) 650 mg PO Q4H PRN PRN Reason: Pain MILD(1-3)/Fever >100.5/FLORES Last Admin: 04/28/19 15:00 Dose: 650 mg Documented by: Enoxaparin Sodium (Lovenox) 40 mg SUB-Q QDAY@2200 JOHANA Last Admin: 04/28/19 22:26 Dose: 40 mg Documented by: Hydromorphone HCl (Dilaudid) 0.5 mg IV Q3H PRN PRN Reason: Pain , Severe (7-10) Last Admin: 04/28/19 08:15 Dose: 0.5 mg Documented by: Sodium Chloride (Nacl 0.9% 1000 Ml) 1,000 mls @ 125 mls/hr IV DIRECT JOHANA Last Admin: 04/29/19 06:39 Dose: 125 mls/hr Documented by: Metronidazole (Flagyl 500 Mg/100 Ml) 500 mg in 100 mls @ 100 mls/hr IV Q8H JOHANA; Protocol Last Admin: 04/29/19 08:44 Dose: 100 mls/hr Documented by: Levofloxacin/Dextrose (Levaquin 500mg/100ml) 500 mg in 100 mls @ 100 mls/hr IV Q24HR [facility]; Protocol Last Admin: 04/28/19 10:12 Dose: 100 mls/hr Documented by: Metoclopramide HCl (Reglan) 10 mg IV Q6H PRN PRN Reason: Nausea And Vomiting Last Admin: 04/29/19 01:34 Dose: 10 mg Documented by: Ondansetron HCl (Zofran) 8 mg IV Q4H PRN PRN Reason: Nausea And Vomiting Last Admin: 04/28/19 16:10 Dose: 8 mg Documented by: Pantoprazole Sodium (Protonix) 40 mg PO DAILY [facility] Last Admin: 04/28/19 10:12 Dose: 40 mg Documented by: Promethazine HCl (Phenergan) 25 mg ID Q6H PRN PRN Reason: N/V IF NPO AND NO IV ACCESS Sodium Chloride (Sodium Chloride Flush Syringe 10 Ml) 10 ml IV BID [facility] Last Admin: 04/28/19 22:26 Dose: 10 ml Documented by: Sodium Chloride (Sodium Chloride Flush Syringe 10 Ml) 10 ml IV PRN PRN PRN Reason: LINE FLUSH medications reviewed/updated as required Review of Systems - Review of Systems All systems: negative Gastrointestinal: abdominal pain, nausea, vomiting Exam - Constitutional Vital Signs: Temp Pulse Resp BP Pulse Ox 98.8 F 61 20 126/83 100 04/29/19 04:58 04/29/19 04:58 04/29/19 04:58 04/29/19 04:58 04/29/19 04:58 General appearance: no acute distress - EENT Eyes: PERRL, EOM intact ENT: hearing intact - Respiratory Respiratory effort: normal - Cardiovascular Rhythm: regular - Gastrointestinal General gastrointestinal: Present: soft, non-tender, non-distended, normal bowel sounds - Neurologic Neurological: alert and oriented x3 - Labs CBC & Chem 7: 04/28/19 10:46 04/28/19 10:46 Lab Results: Laboratory Results - last 24 hr 04/28/19 04/28/19 10:46 10:46 WBC 8.4 RBC 4.85 Hgb 14.2 Hct 41.9 D MCV 87 MCH 29 MCHC 34 RDW 13.7 Plt Count 263 Lymph % (Auto) 17.2 [place] % (Auto) 4.2 Eos % (Auto) 0.0 Baso % (Auto) 0.4 Lymph # 1.4 [place] # 0.4 Eos # 0.0 Baso # 0.0 Seg Neutrophils % 78.2 H Seg Neutrophils # 6.5 Sodium 140 Potassium 3.4 L Chloride 103.4 Carbon Dioxide 24 Anion Gap 16 BUN 11 Creatinine 1.1 Estimated GFR > 60 BUN/Creatinine Ratio 10 Glucose 160 H Calcium 8.8 Total Bilirubin 0.30 AST 31 ALT 25 Alkaline Phosphatase 66 Total Protein 7.0 Albumin 4.1 Albumin/Globulin Ratio 1.4 Assessment and Plan 1.generalized abd pain-resolved 2.N/V-improved 3.colitis seen on CT 4.UTI -afebrile -WBC, H/H, lipase and LFTs WNL -abd CT-question mild colitis -etiology unclear-possibly infectious vs inflammatory, however UTI and marijuana use also likely contributing to symptoms) -clinically, patient is stable. Reports feeling better with abd pain now resolved. N/V improved. No diarrhea or signs of bleeding. -abd U/S -no plan for scope at this time, consider as outpatient based on progress -advance diet as tolerated -continue PPI -continue antibiotics and supportive care -limit narcotics -substance (marijuana) cessation discussed/encouraged with patient -once tolerating PO, okay to be d/c per GI standpoint on antibiotics with f/u in clinic in ~2-3 weeks <ROBYN WISEMAN - Last Filed: 04/29/19 19:42> Medications and Allergies Active Meds: Active Medications Acetaminophen (Tylenol) 650 mg PO Q4H PRN PRN Reason: Pain MILD(1-3)/Fever >100.5/FLORES Last Admin: 04/29/19 18:18 Dose: 650 mg Documented by: Enoxaparin Sodium (Lovenox) 40 mg SUB-Q QDAY@2200 JOHANA Last Admin: 04/28/19 22:26 Dose: 40 mg Documented by: Hydromorphone HCl (Dilaudid) 0.5 mg IV Q3H PRN PRN Reason: Pain , Severe (7-10) Last Admin: 04/28/19 08:15 Dose: 0.5 mg Documented by: Sodium Chloride (Nacl 0.9% 1000 Ml) 1,000 mls @ 125 mls/hr IV DIRECT JOHANA Last Admin: 04/29/19 06:39 Dose: 125 mls/hr Documented by: Metronidazole (Flagyl 500 Mg/100 Ml) 500 mg in 100 mls @ 100 mls/hr IV Q8H [facility]; Protocol Last Admin: 04/29/19 16:32 Dose: 100 mls/hr Documented by: Levofloxacin/Dextrose (Levaquin 500mg/100ml) 500 mg in 100 mls @ 100 mls/hr IV Q24HR [facility]; Protocol Last Admin: 04/29/19 10:30 Dose: 100 mls/hr Documented by: Metoclopramide HCl (Reglan) 10 mg IV Q6H PRN PRN Reason: Nausea And Vomiting Last Admin: 04/29/19 14:31 Dose: 10 mg Documented by: Ondansetron HCl (Zofran) 8 mg IV Q4H PRN PRN Reason: Nausea And Vomiting Last Admin: 04/28/19 16:10 Dose: 8 mg Documented by: Pantoprazole Sodium (Protonix) 40 mg PO DAILY [facility] Last Admin: 04/29/19 11:57 Dose: 40 mg Documented by: Promethazine HCl (Phenergan) 25 mg ID Q6H PRN PRN Reason: N/V IF NPO AND NO IV ACCESS Sodium Chloride (Sodium Chloride Flush Syringe 10 Ml) 10 ml IV BID [facility] Last Admin: 04/29/19 11:57 Dose: 10 ml Documented by: Sodium Chloride (Sodium Chloride Flush Syringe 10 Ml) 10 ml IV PRN PRN PRN Reason: LINE FLUSH Exam - Constitutional Vital Signs: Temp Pulse Resp BP Pulse Ox 100.3 F H 72 20 128/77 99 04/29/19 17:05 04/29/19 17:05 04/29/19 17:05 04/29/19 17:05 04/29/19 17:05 - Labs CBC & Chem 7: 04/28/19 10:46 04/28/19 10:46 Assessment and Plan Patient seen and examined. Agree with note above; symptoms improved/resolved at time of exam. Rest as above.
[2019-04-29] MEDS: LEVAQUIN 500MG/100ML 500 MG/100 ML BAG IV SCH (10:30)
[2019-04-29] MEDS: PROTONIX PO SCH (11:57)
[2019-04-29] MEDS: SODIUM CHLORIDE FLUSH SYRINGE 10 ML IV SCH ×2 (11:57→21:27)
--- NOTE | 2019-04-29 15:56 | Progress Note ---
Hospitalist Physical - Constitutional Vitals: Temp Pulse Resp BP Pulse Ox 98.2 F 86 20 152/97 99 04/29/19 11:38 04/29/19 11:38 04/29/19 11:38 04/29/19 11:38 04/29/19 11:38 General appearance: Present: mild distress, cachectic Results - Labs CBC & Chem 7: 04/28/19 10:46 04/28/19 10:46 Labs: Laboratory Last Values WBC 8.4 K/mm3 (4.5-11.0) 04/28/19 10:46 RBC 4.85 M/mm3 (3.65-5.03) 04/28/19 10:46 Hgb 14.2 gm/dl (11.8-15.2) 04/28/19 10:46 Hct 41.9 % (35.5-45.6) D 04/28/19 10:46 MCV 87 fl (84-94) 04/28/19 10:46 MCH 29 pg (28-32) 04/28/19 10:46 MCHC 34 % (32-34) 04/28/19 10:46 RDW 13.7 % (13.2-15.2) 04/28/19 10:46 Plt Count 263 K/mm3 (140-440) 04/28/19 10:46 Lymph % (Auto) 17.2 % (13.4-35.0) 04/28/19 10:46 [place] % (Auto) 4.2 % (0.0-7.3) 04/28/19 10:46 Eos % (Auto) 0.0 % (0.0-4.3) 04/28/19 10:46 Baso % (Auto) 0.4 % (0.0-1.8) 04/28/19 10:46 Lymph # 1.4 K/mm3 (1.2-5.4) 04/28/19 10:46 [place] # 0.4 K/mm3 (0.0-0.8) 04/28/19 10:46 Eos # 0.0 K/mm3 (0.0-0.4) 04/28/19 10:46 Baso # 0.0 K/mm3 (0.0-0.1) 04/28/19 10:46 Seg Neutrophils % 78.2 % (40.0-70.0) H 04/28/19 10:46 Seg Neutrophils # 6.5 K/mm3 (1.8-7.7) 04/28/19 10:46 PT 13.3 Sec. (12.2-14.9) 04/26/19 14:06 INR 1.04 (0.87-1.13) 04/26/19 14:06 APTT 26.4 Sec. (24.2-36.6) 04/26/19 14:06 Sodium 140 mmol/L (137-145) 04/28/19 10:46 Potassium 3.4 mmol/L (3.6-5.0) L 04/28/19 10:46 Chloride 103.4 mmol/L (98-107) 04/28/19 10:46 Carbon Dioxide 24 mmol/L (22-30) 04/28/19 10:46 16 mmol/L 04/28/19 10:46 BUN 11 mg/dL (9-20) 04/28/19 10:46 1.1 mg/dL (0.8-1.5) 04/28/19 10:46 Estimated GFR > 60 ml/min 04/28/19 10:46 10 % 04/28/19 10:46 Glucose 160 mg/dL (75-100) H 04/28/19 10:46 POC Glucose 140 (70-105) H 04/26/19 12:54 Lactic Acid 1.10 mmol/L (0.7-2.0) 04/27/19 04:46 Calcium 8.8 mg/dL (8.4-10.2) 04/28/19 10:46 Magnesium 1.90 mg/dL (1.7-2.3) 04/26/19 14:06 0.30 mg/dL (0.1-1.2) 04/28/19 10:46 AST 31 units/L (5-40) 04/28/19 10:46 ALT 25 units/L (7-56) 04/28/19 10:46 66 units/L (35-129) 04/28/19 10:46 417 units/L (55-170) H 04/26/19 14:06 CK-MB (CK-2) 3.4 ng/mL (0.0-4.0) 04/26/19 14:06 CK-MB (CK-2) Rel Index 0.8 (0-4) 04/26/19 14:06 < 0.010 ng/mL (0.00-0.029) 04/26/19 16:28 NT-Pro-B Natriuret Pep < 5 pg/mL (0-450) 04/26/19 14:06 7.0 g/dL (6.3-8.2) 04/28/19 10:46 4.1 g/dL (3.9-5) 04/28/19 10:46 1.4 % 04/28/19 10:46 18 units/L (13-60) 04/26/19 14:06 TSH 0.687 mlU/mL (0.270-4.200) 04/26/19 14:06 Dariel[place] (Yellow) 04/26/19 13:23 Cloudy (Clear) 04/26/19 13:23 5.0 (5.0-7.0) 04/26/19 13:23 Ur Specific [place] 1.032 (1.003-1.030) H 04/26/19 13:23 100 mg/dl mg/dL (Negative) 04/26/19 13:23 Neg mg/dL (Negative) 04/26/19 13:23 20 mg/dL (Negative) 04/26/19 13:23 Neg (Negative) 04/26/19 13:23 Neg (Negative) 04/26/19 13:23 Ur Reducing Substances Not Reportable 04/26/19 13:23 Neg (Negative) 04/26/19 13:23 Not Reportable 04/26/19 13:23 < 2.0 mg/dL (<2.0) 04/26/19 13:23 Ur Leukocyte Esterase Sm (Negative) 04/26/19 13:23 26.0 /HPF (0.0-6.0) H 04/26/19 13:23 3.0 /HPF (0.0-6.0) 04/26/19 13:23 U Epithel Cells (Auto) 1.0 /HPF (0-13.0) 04/26/19 13:23 3+ /HPF 04/26/19 13:23 Presumptive negative 04/26/19 13:23 Presumptive negative 04/26/19 13:23 Ur Barbiturates Screen Presumptive negative 04/26/19 13:23 Ur Phencyclidine Scrn Presumptive negative 04/26/19 13:23 Ur Amphetamines Screen Presumptive negative 04/26/19 13:23 U Benzodiazepines Scrn Presumptive negative 04/26/19 13:23 Presumptive negative 04/26/19 13:23 U Marijuana (THC) Screen Presumptive positive 04/26/19 13:23 Disclamer 04/26/19 13:23 Blood Type A POSITIVE 04/26/19 13:41 Antibody Screen Negative 04/26/19 13:41 Active Medications - Current Medications Current Medications: Generic Name Dose Route Start Last Admin Trade Name Freq PRN Reason Stop Dose Admin Acetaminophen 650 mg 04/26/19 20:51 04/28/19 15:00 Tylenol PO 650 mg Q4H PRN Administration Pain MILD(1-3)/Fever >100.5/FLORES Enoxaparin Sodium 40 mg 04/26/19 22:00 04/28/19 22:26 Lovenox SUB-Q 40 mg QDAY@2200 JOHANA Administration Hydromorphone HCl 0.5 mg 04/26/19 20:51 04/28/19 08:15 Dilaudid IV 0.5 mg Q3H PRN Administration Pain , Severe (7-10) Sodium Chloride 1,000 mls @ 125 mls/hr 04/26/19 15:00 04/29/19 06:39 Nacl 0.9% 1000 Ml IV 125 mls/hr DIRECT JOHANA Administration Metronidazole 500 mg in 100 mls @ 100 mls/hr 04/26/19 16:00 04/29/19 08:44 Flagyl 500 Mg/100 Ml IV 100 mls/hr Q8H JOHANA Administration Protocol Levofloxacin/Dextrose 500 mg in 100 mls @ 100 mls/hr 04/27/19 00:01 04/29/19 10:30 Levaquin 500mg/100ml IV 100 mls/hr Q24HR JOHANA Administration Protocol Metoclopramide HCl 10 mg 04/26/19 20:51 04/29/19 14:31 Reglan IV 10 mg Q6H PRN Administration Nausea And Vomiting Ondansetron HCl 8 mg 04/28/19 09:13 04/28/19 16:10 Zofran IV 8 mg Q4H PRN Administration Nausea And Vomiting Pantoprazole Sodium 40 mg 04/28/19 10:00 04/29/19 11:57 Protonix PO 40 mg DAILY JOHANA Administration Promethazine HCl 25 mg 04/26/19 20:51 Phenergan [place] Q6H PRN N/V IF NPO AND NO IV ACCESS Sodium Chloride 10 ml 04/26/19 22:00 04/29/19 11:57 Sodium Chloride Flush Syringe 10 Ml IV 10 ml BID JOHANA Administration Sodium Chloride 10 ml 04/26/19 20:51 Sodium Chloride Flush Syringe 10 Ml IV PRN PRN LINE FLUSH
--- NOTE | 2019-04-29 16:01 | Progress Note ---
Assessment and Plan Assessment and plan: --Abdominal pain: Possible colitis Current Visit: Yes Status: Acute Plan to address problem: Mild improvement of symptoms.We'll continue antibiotics Flagyl and Levaquin. Continue to advance diet as tolerated ,GI requested abd US F/U abd US if neg and if pt tolerates diet may be discharged AM -- UTI (urinary tract infection) Current Visit: Yes Status: Acute Plan to address problem: Emperic antibiotics ,afebrile f/u cultures --Hypokalemia: Replace with Kcl --Lactic Acidosis: Probably sec to underlying dis process. Resolved --DVT prophylaxis: Lovenox Disposition: F/U abd US ,if neg and pt is stable, may DC home tomorrow History Interval history: Patient seen and examined,medical records reviewed Admitted with acute colitis, on IV antibiotics C/O mild abdominal pain Vital signs noted Hospitalist Physical - Constitutional Vitals: Temp Pulse Resp BP Pulse Ox 98.2 F 86 20 152/97 99 04/29/19 11:38 04/29/19 11:38 04/29/19 11:38 04/29/19 11:38 04/29/19 11:38 General appearance: Present: no acute distress, obese - EENT Eyes: Present: PERRL, EOM intact - Neck Neck: Present: supple, normal ROM - Respiratory Respiratory effort: normal Respiratory: negative: rales, rhonchi, wheezing - Cardiovascular Rhythm: regular Heart Sounds: Present: S1 & S2 - Extremities Extremities: no ischemia, No edema - Abdominal General gastrointestinal: soft, tender (vague tenderness,no guarding,no rigidity) - Integumentary Integumentary: Present: clear, warm - Psychiatric Psychiatric: appropriate mood/affect, cooperative - Neurologic Neurologic: CNII-XII intact, moves all extremities Results - Labs CBC & Chem 7: 04/28/19 10:46 04/28/19 10:46 Labs: Laboratory Last Values WBC 8.4 K/mm3 (4.5-11.0) 04/28/19 10:46 RBC 4.85 M/mm3 (3.65-5.03) 04/28/19 10:46 Hgb 14.2 gm/dl (11.8-15.2) 04/28/19 10:46 Hct 41.9 % (35.5-45.6) D 04/28/19 10:46 MCV 87 fl (84-94) 04/28/19 10:46 MCH 29 pg (28-32) 04/28/19 10:46 MCHC 34 % (32-34) 04/28/19 10:46 RDW 13.7 % (13.2-15.2) 04/28/19 10:46 Plt Count 263 K/mm3 (140-440) 04/28/19 10:46 Lymph % (Auto) 17.2 % (13.4-35.0) 04/28/19 10:46 [place] % (Auto) 4.2 % (0.0-7.3) 04/28/19 10:46 Eos % (Auto) 0.0 % (0.0-4.3) 04/28/19 10:46 Baso % (Auto) 0.4 % (0.0-1.8) 04/28/19 10:46 Lymph # 1.4 K/mm3 (1.2-5.4) 04/28/19 10:46 [place] # 0.4 K/mm3 (0.0-0.8) 04/28/19 10:46 Eos # 0.0 K/mm3 (0.0-0.4) 04/28/19 10:46 Baso # 0.0 K/mm3 (0.0-0.1) 04/28/19 10:46 Seg Neutrophils % 78.2 % (40.0-70.0) H 04/28/19 10:46 Seg Neutrophils # 6.5 K/mm3 (1.8-7.7) 04/28/19 10:46 PT 13.3 Sec. (12.2-14.9) 04/26/19 14:06 INR 1.04 (0.87-1.13) 04/26/19 14:06 APTT 26.4 Sec. (24.2-36.6) 04/26/19 14:06 Sodium 140 mmol/L (137-145) 04/28/19 10:46 Potassium 3.4 mmol/L (3.6-5.0) L 04/28/19 10:46 Chloride 103.4 mmol/L (98-107) 04/28/19 10:46 Carbon Dioxide 24 mmol/L (22-30) 04/28/19 10:46 16 mmol/L 04/28/19 10:46 BUN 11 mg/dL (9-20) 04/28/19 10:46 1.1 mg/dL (0.8-1.5) 04/28/19 10:46 Estimated GFR > 60 ml/min 04/28/19 10:46 10 % 04/28/19 10:46 Glucose 160 mg/dL (75-100) H 04/28/19 10:46 POC Glucose 140 (70-105) H 04/26/19 12:54 Lactic Acid 1.10 mmol/L (0.7-2.0) 04/27/19 04:46 Calcium 8.8 mg/dL (8.4-10.2) 04/28/19 10:46 Magnesium 1.90 mg/dL (1.7-2.3) 04/26/19 14:06 0.30 mg/dL (0.1-1.2) 04/28/19 10:46 AST 31 units/L (5-40) 04/28/19 10:46 ALT 25 units/L (7-56) 04/28/19 10:46 66 units/L (35-129) 04/28/19 10:46 417 units/L (55-170) H 04/26/19 14:06 CK-MB (CK-2) 3.4 ng/mL (0.0-4.0) 04/26/19 14:06 CK-MB (CK-2) Rel Index 0.8 (0-4) 04/26/19 14:06 < 0.010 ng/mL (0.00-0.029) 04/26/19 16:28 NT-Pro-B Natriuret Pep < 5 pg/mL (0-450) 04/26/19 14:06 7.0 g/dL (6.3-8.2) 04/28/19 10:46 4.1 g/dL (3.9-5) 04/28/19 10:46 1.4 % 04/28/19 10:46 18 units/L (13-60) 04/26/19 14:06 TSH 0.687 mlU/mL (0.270-4.200) 04/26/19 14:06 Dariela (Yellow) 04/26/19 13:23 Cloudy (Clear) 04/26/19 13:23 5.0 (5.0-7.0) 04/26/19 13:23 Ur Specific [place] 1.032 (1.003-1.030) H 04/26/19 13:23 100 mg/dl mg/dL (Negative) 04/26/19 13:23 Neg mg/dL (Negative) 04/26/19 13:23 20 mg/dL (Negative) 04/26/19 13:23 Neg (Negative) 04/26/19 13:23 Neg (Negative) 04/26/19 13:23 Ur Reducing Substances Not Reportable 04/26/19 13:23 Neg (Negative) 04/26/19 13:23 Not Reportable 04/26/19 13:23 < 2.0 mg/dL (<2.0) 04/26/19 13:23 Ur Leukocyte Esterase Sm (Negative) 04/26/19 13:23 26.0 /HPF (0.0-6.0) H 04/26/19 13:23 3.0 /HPF (0.0-6.0) 04/26/19 13:23 U Epithel Cells (Auto) 1.0 /HPF (0-13.0) 04/26/19 13:23 3+ /HPF 04/26/19 13:23 Presumptive negative 04/26/19 13:23 Presumptive negative 04/26/19 13:23 Ur Barbiturates Screen Presumptive negative 04/26/19 13:23 Ur Phencyclidine Scrn Presumptive negative 04/26/19 13:23 Ur Amphetamines Screen Presumptive negative 04/26/19 13:23 U Benzodiazepines Scrn Presumptive negative 04/26/19 13:23 Presumptive negative 04/26/19 13:23 U Marijuana (THC) Screen Presumptive positive 04/26/19 13:23 Disclamer 04/26/19 13:23 Blood Type A POSITIVE 04/26/19 13:41 Antibody Screen Negative 04/26/19 13:41 Active Medications - Current Medications Current Medications: Generic Name Dose Route Start Last Admin Trade Name Freq PRN Reason Stop Dose Admin Acetaminophen 650 mg 04/26/19 20:51 04/28/19 15:00 Tylenol PO 650 mg Q4H PRN Administration Pain MILD(1-3)/Fever >100.5/FLORES Enoxaparin Sodium 40 mg 04/26/19 22:00 04/28/19 22:26 Lovenox SUB-Q 40 mg QDAY@2200 JOHANA Administration Hydromorphone HCl 0.5 mg 04/26/19 20:51 04/28/19 08:15 Dilaudid IV 0.5 mg Q3H PRN Administration Pain , Severe (7-10) Sodium Chloride 1,000 mls @ 125 mls/hr 04/26/19 15:00 04/29/19 06:39 Nacl 0.9% 1000 Ml IV 125 mls/hr DIRECT JOHANA Administration Metronidazole 500 mg in 100 mls @ 100 mls/hr 04/26/19 16:00 04/29/19 08:44 Flagyl 500 Mg/100 Ml IV 100 mls/hr Q8H JOHANA Administration Protocol Levofloxacin/Dextrose 500 mg in 100 mls @ 100 mls/hr 04/27/19 00:01 04/29/19 10:30 Levaquin 500mg/100ml IV 100 mls/hr Q24HR JOHANA Administration Protocol Metoclopramide HCl 10 mg 04/26/19 20:51 04/29/19 14:31 Reglan IV 10 mg Q6H PRN Administration Nausea And Vomiting Ondansetron HCl 8 mg 04/28/19 09:13 04/28/19 16:10 Zofran IV 8 mg Q4H PRN Administration Nausea And Vomiting Pantoprazole Sodium 40 mg 04/28/19 10:00 04/29/19 11:57 Protonix PO 40 mg DAILY JOHANA Administration Promethazine HCl 25 mg 04/26/19 20:51 Phenergan MT Q6H PRN N/V IF NPO AND NO IV ACCESS Sodium Chloride 10 ml 04/26/19 22:00 04/29/19 11:57 Sodium Chloride Flush Syringe 10 Ml IV 10 ml BID JOHANA Administration Sodium Chloride 10 ml 04/26/19 20:51 Sodium Chloride Flush Syringe 10 Ml IV PRN PRN LINE FLUSH
[2019-04-29] MEDS: TYLENOL PO PRN (18:18)
--- NOTE | 2019-04-29 19:50 | Ultrasound Report ---
ULTRASOUND ABDOMEN, COMPLETE INDICATION: N/v. Diffuse abdominal pain COMPARISON: No relevant prior imaging study available. FINDINGS: Pancreas: No significant abnormality. Abdominal Aorta: No significant abnormality. IVC: No significant abnormality. Liver: No significant abnormality. Normal hepatopedal blood flow in the main portal vein. Gallbladder: Moderate gallbladder sludge Bile ducts: No significant abnormality. Common bile duct measures 3 mm. Kidneys: Right: No significant abnormality. Left: No significant abnormality. Spleen: No significant abnormality. Free fluid: None. Additional Findings: None. IMPRESSION: Moderate gallbladder sludge without evidence of gallbladder wall thickening. The liver is slightly he terogeneous in echogenicity, nonspecific. Signer Name: Twan Koehler MD Signed: 04/29/2019 7:46 PM Workstation Name: [id number]
[2019-04-29] MEDS: ZOFRAN IV PRN (19:58)
[2019-04-29] MEDS: LOVENOX SUB-Q SCH (21:27)
[2019-04-30] MEDS: ZOFRAN IV PRN ×2 (00:14→07:47)
[2019-04-30] MEDS: FLAGYL 500 MG/100 ML 500 MG/100 ML BAG IV SCH ×3 (00:14→16:42)
[2019-04-30] MEDS: NACL 0.9% 1000 ML 1,000 ML IV SCH (07:47)
--- NOTE | 2019-04-30 10:01 | Gastroenterology Progress Note ---
<JOB EVANS - Last Filed: 04/30/19 09:54> Assessment and Plan 1.generalized abd pain-resolved 2.N/V -WBC, H/H, lipase and LFTs WNL -abd CT-question mild colitis -etiology-possible GB disease vs other (marijuana use also likely contributing) -clinically, patient is stable. Reports inability to tolerate advanced diet yesterday with continued N/V overnight and this am x 4 episodes. No abd pain or signs of bleeding. -abd U/S yesterday with moderate GB sludge -will order HIDA for further evaluation of GB, along with surgery consult for possible cholecystectomy -will consider EGD in am to r/o GI pathology if recommended per surgery -decrease diet to liquids -NPO after MN -continue PPI and supportive care -limit narcotics -substance (marijuana) cessation discussed/encouraged with patient -will follow 3.colitis -afebrile -abd CT- question mild colitis -stool studies if diarrhea develops -continue antibiotics and supportive care 4.UTI Subjective Date of service: 04/30/19 Principal diagnosis: colitis Interval history: Patient resting in bed w/o acute distress. Reports inability to tolerate advanced diet overnight with 4 episodes of N/V since yesterday (last episode this am). No diarrhea, abd pain, or signs of bleeding. Objective - Constitutional Vitals: Temp Pulse Resp BP Pulse Ox 97.5 F L 62 20 142/88 99 04/30/19 05:19 04/30/19 05:19 04/30/19 05:19 04/30/19 05:19 04/30/19 05:19 General appearance: no acute distress - Respiratory Respiratory effort: normal - Cardiovascular Rhythm: regular - Gastrointestinal General gastrointestinal: Present: soft, non-tender, non-distended, normal bowel sounds - Neurologic Neurological: alert and oriented x3 - Labs CBC & Chem 7: 04/28/19 10:46 04/28/19 10:46 <ROBYN WISEMAN - Last Filed: 05/01/19 09:51> Assessment and Plan Pt seen and examined. Agree with note above. Objective - Constitutional Vitals: Temp Pulse Resp BP Pulse Ox 98.7 F 118 H 20 148/104 100 05/01/19 05:16 05/01/19 06:28 05/01/19 05:16 05/01/19 06:28 05/01/19 05:16 - Labs CBC & Chem 7: 04/28/19 10:46 04/28/19 10:46
--- NOTE | 2019-04-30 11:41 | Consultation ---
History of Present Illness Consult date: 04/30/19 Chief complaint: n/v, diarrhea - History of present illness History of present illness: 39 yo M with no PMHx presented to ER with n/v and diarrhea x few days. He states that he would vomit despite drinking water. No f/c but did start to feel hot before each episode of vomiting. Emesis is clear (nonbilious/nonbloody). He is also having diarrhea (liquid brown stools) and increased frequency of urination. He denies abdominal pain. He has had one episode of these symptoms about 4 months ago after he went deep see [employer]. He states the same thing happened after he ate at [employer]. He states he has never had any issues eating. He tolerates all foods without triggering abdominal pain, n/v. Yesterday he was started on a liquid diet and states he had emesis overnight. Since then he has not vomited Past History Past Medical History: other (eczema) Past Surgical History: No surgical history Social history: smoking, other (marijuana) Medications and Allergies Allergies Allergy/AdvReac Type Severity Reaction Status Date / Time Penicillins AdvReac Itching Verified 04/26/19 22:36 Home Medications Medication Instructions Recorded Confirmed Last Taken Type Cetirizine HCl [Zyrtec 10mg tab] 10 mg PO QDAY 04/26/19 04/26/19 04/26/19 History diphenhydrAMINE [Benadryl CAP] 25 mg PO QHS 04/26/19 04/26/19 04/25/19 History Active Meds: Active Medications Acetaminophen (Tylenol) 650 mg PO Q4H PRN PRN Reason: Pain MILD(1-3)/Fever >100.5/FLORES Last Admin: 04/29/19 18:18 Dose: 650 mg Documented by: Enoxaparin Sodium (Lovenox) 40 mg SUB-Q QDAY@2200 JOHANA Last Admin: 04/29/19 21:27 Dose: 40 mg Documented by: Hydromorphone HCl (Dilaudid) 0.5 mg IV Q3H PRN PRN Reason: Pain , Severe (7-10) Last Admin: 04/28/19 08:15 Dose: 0.5 mg Documented by: Sodium Chloride (Nacl 0.9% 1000 Ml) 1,000 mls @ 125 mls/hr IV DIRECT JOHANA Last Admin: 04/30/19 07:47 Dose: 125 mls/hr Documented by: Metronidazole (Flagyl 500 Mg/100 Ml) 500 mg in 100 mls @ 100 mls/hr IV Q8H JOHANA; Protocol Last Admin: 04/30/19 07:47 Dose: 100 mls/hr Documented by: Levofloxacin/Dextrose (Levaquin 500mg/100ml) 500 mg in 100 mls @ 100 mls/hr IV Q24HR JOHANA; Protocol Last Admin: 04/29/19 10:30 Dose: 100 mls/hr Documented by: Metoclopramide HCl (Reglan) 10 mg IV Q8H JOHANA Ondansetron HCl (Zofran) 8 mg IV Q4H PRN PRN Reason: Nausea And Vomiting Last Admin: 04/30/19 07:47 Dose: 8 mg Documented by: Pantoprazole Sodium (Protonix) 40 mg PO DAILY [facility] Last Admin: 04/29/19 11:57 Dose: 40 mg Documented by: Promethazine HCl (Phenergan) 25 mg NV Q6H PRN PRN Reason: N/V IF NPO AND NO IV ACCESS Sodium Chloride (Sodium Chloride Flush Syringe 10 Ml) 10 ml IV BID [facility] Last Admin: 04/29/19 21:27 Dose: 10 ml Documented by: Sodium Chloride (Sodium Chloride Flush Syringe 10 Ml) 10 ml IV PRN PRN PRN Reason: LINE FLUSH Review of Systems All systems: negative (10 pt ROS performed and negative except for that listed in HPI) Exam Vital Signs Temp Pulse Resp BP Pulse Ox 97.4 F L 72 22 148/109 100 04/26/19 12:52 04/26/19 12:52 04/26/19 12:52 04/26/19 12:52 04/26/19 12:52 Narrative exam: Gen; AAOx3. NAD ENT: no scleral icterus or conjunctival pallor CV; S1, s2+ Resp: even and unlabored Abd: soft, NT, ND Ext; no c/c/e Results - Labs 04/28/19 10:46 04/28/19 10:46 - Imaging CT scan - abdomen: report reviewed, image reviewed CT scan - pelvis: report reviewed, image reviewed US - abdomen: report reviewed, image reviewed Assessment and Plan 39 yo M with 1. colitis 2. n/v 3. UTI Abd u/s - gallbladder sludge but no wall thickening, pericholecystic fluid, or biliary duct dilatation. CT scan A/P - possible mild colitis Plan: 1. obtain stool studies 2. HIDA scan ordered per GI - will follow up 3. NPO for now 4. change reglan to q8h, prn zofran and phenergan 5. abx per 1' service 6. GI on board Further recommendations pending HIDA scan. Thank you, please call with questions.
[2019-04-30] MEDS: REGLAN IV SCH ×2 (12:00→22:00)
[2019-04-30] MEDS ORDERED: KINEVAC IV ONE ×2 (12:44→12:45)
--- NOTE | 2019-04-30 14:47 | Nuclear Medicine Report ---
NUCLEAR MEDICINE HEPATOBILIARY SCAN INDICATION: Nausea and vomiting, right upper quadrant pain. TECHNIQUE: Radiotracer: 5 mCi of technetium 99m Choletec was administered. Gallbladder Stimulant: 1.9 mcg of CCK FINDINGS: Hepatic activity: Normal. Biliary activity: Normal. Common bile duct activity at 5 minutes. Gallbladder activity: Normal at 10 minutes. Small bowel activity: Normal at 10 minutes. The gallbladder ejection fraction measures 87%. IMPRESSION: No biliary obstruction. Signer Name: Esteban Harp Jr, MD Signed: 04/30/2019 2:43 PM Workstation Name: [id number]
[2019-04-30] MEDS: LEVAQUIN 500MG/100ML 500 MG/100 ML BAG IV SCH (14:49)
[2019-04-30] MEDS: SODIUM CHLORIDE FLUSH SYRINGE 10 ML IV SCH ×2 (14:50→22:26)
[2019-04-30] MEDS: PROTONIX PO SCH (14:50)
[2019-04-30] MEDS ORDERED: K-DUR PO ONE (15:39)
--- NOTE | 2019-04-30 15:40 | Progress Note ---
Assessment and Plan /-Abdominal pain: Possible colitis Mild improvement of symptoms. We'll continue antibiotics Flagyl and Levaquin. GI following , did not tolerate diet o/n, plan for HIDA scan, abd U/S yesterday with moderate GB sludge If HIDA scan negative then plan for EGD tomorrow / UTI (urinary tract infection) Emperic antibiotics ,afebrile f/u cultures /-Hypokalemia: Replace with Kcl /-Lactic Acidosis: Probably sec to underlying dis process. Resolved /Substance abuse with marijuana, counseled /-DVT prophylaxis: Lovenox Disposition: when tolerates diet and cleared by GI Brief History Patient is a 39 y/o male with no significant PMH who presented to ED with c/o abdominal pain with associated fever, N/V and dysuria. Upon admission, he was found to have a UTI, along with mild colitis seen on CT. No hx or Fhx of IBD or GI cancer. No prior EGD/colonoscopy. Uses marijuana a couple of times a month (UDS positive). Hospitalist Physical General appearance: Present: no acute distress, obese - EENT Eyes: Present: PERRL, EOM intact - Neck Neck: Present: supple, normal ROM - Respiratory Respiratory effort: normal Respiratory: negative: rales, rhonchi, wheezing - Cardiovascular Rhythm: regular Heart Sounds: Present: S1 & S2 - Extremities Extremities: no ischemia, No edema - Abdominal General gastrointestinal: soft, tender (vague tenderness,no guarding,no rigidity) - Integumentary Integumentary: Present: clear, warm - Psychiatric Psychiatric: appropriate mood/affect, cooperative - Neurologic Neurologic: CNII-XII intact, moves all extremities Subjective Date of service: 04/30/19 Principal diagnosis: colitis Interval history: Patient seen and examined. Medical records and medication list reviewed. No acute event overnight noted by the RN. Patient denies any chest pain or difficulty breathing. Continue to have episodes of vomiting and nausea Plan for HIDA scan today - if negative then plan for EGD Discussed plan of care at bedside with patient. Objective - Constitutional Vitals: Vital Signs - 12hr 04/30/19 04/30/19 05:19 11:23 Temperature 97.5 F L 100.2 F H Pulse Rate 62 61 Respiratory 20 20 Rate Blood Pressure 142/88 147/95 O2 Sat by Pulse 99 100 Oximetry - Labs CBC & Chem 7: 04/28/19 10:46 05/02/19 08:37
[2019-04-30] MEDS: D5W/NS W/KCL 20MEQ 20 MEQ/1,000 ML BAG IV SCH (16:42)
[2019-04-30] MEDS: TYLENOL PO PRN (17:06)
[2019-04-30] MEDS: LOVENOX SUB-Q SCH (23:27)
[2019-05-01] MEDS: FLAGYL 500 MG/100 ML 500 MG/100 ML BAG IV SCH ×3 (00:37→18:33)
[2019-05-01] MEDS: D5W/NS W/KCL 20MEQ 20 MEQ/1,000 ML BAG IV SCH ×2 (00:38→21:44)
[2019-05-01] MEDS: REGLAN IV SCH ×3 (06:27→21:39)
[2019-05-01] MEDS: APRESOLINE IV PRN ×2 (06:28→19:42)
--- NOTE | 2019-05-01 09:03 | Event Note ---
Date: 05/01/19 Chart reviewed. HIDA scan negative with normal EF. Will defer diet advancement to GI. No surgical intervention, will s/o.
--- NOTE | 2019-05-01 09:56 | Event Note ---
Date: 05/01/19 HIDA scan yesterday negative with normal EF. Will proceed with EGD today.
[2019-05-01] MEDS ORDERED: NACL 0.9% 1000 ML 1,000 ML ONE (10:00)
--- NOTE | 2019-05-01 10:52 | Anesthesia Consultation ---
Anesthesia Consult and Med Hx Date of service: 05/01/19 - Airway Anesthetic Teeth Evaluation: Good ROM Head & Neck: Adequate Mental/Hyoid Distance: Adequate Mallampati Class: Class II Intubation Access Assessment: Probably Good - Pre-Operative Health Status ASA Pre-Surgery Classification: ASA2 - Pulmonary Hx Asthma: No COPD: No Hx Pneumonia: No - Central Nervous System Hx Seizures: No CVA: No Hx Back Pain: Yes (gout) - Gastrointestinal Hx Ulcer: Yes (nausea/vomiting) - Endocrine Hx End Stage Renal Disease: No - Other Systems Hx Cancer: No
--- NOTE | 2019-05-01 10:53 | Anesthesia Day of Surgery ---
Anesthesia Day of Surgery - Day of Surgery Patient Examined: Yes Patient H&P Reviewed: Yes Patient is NPO: Yes
[2019-05-01] MEDS ORDERED: DIPRIVAN 10 MG/ML IV ONE (10:56)
[2019-05-01] MEDS ORDERED: K-DUR PO ONE (11:00)
[2019-05-01] MEDS ORDERED: NACL 0.9% 1000 ML 1,000 ML IV SCH (11:00)
[2019-05-01] MEDS: PROTONIX PO SCH (11:10)
[2019-05-01] MEDS: SODIUM CHLORIDE FLUSH SYRINGE 10 ML IV SCH ×2 (11:10→22:00)
[2019-05-01] MEDS: LEVAQUIN 500MG/100ML 500 MG/100 ML BAG IV SCH ×2 (11:10→15:11)
--- NOTE | 2019-05-01 11:15 | Operative Report ---
Operative Report Operative Report: Esophagogastroduodenoscopy Procedure Note Date of procedure: 05/01/2019 Endoscopist: Bob Martinez Pre-op diagnosis/indication: Abdominal pain, nausea/vomiting Post-op diagnosis: Erythematous mucosa in gastric fundus (likely from emesis) but otherwise normal upper endoscopy MEDICATIONS: MAC COMPLICATIONS: No immediate complications ESTIMATED BLOOD LOSS:None DESCRIPTION OF PROCEDURE: After consent was obtained, the patient was placed in the left lateral decubitis position. The olympus endoscope was inserted into the patient's mouth under direct vision and advanced to the 2nd portion of the duodenum without difficulty. The patient tolerated the procedure well. The views of the mucosa were good. The patient's vital signs were monitored continuously throughout the procedure. FINDINGS: The esophagus appeared normal. There was mild erythematous mucosa in the gastric fundus likely from emesis episodes. Otherwise normal appearing stomach without peptic ulcer disease or other abnormalities. The duodenum appeared normal IMPRESSION: 1. Mild erythematous gastric fundus mucosa likely from emesis. Otherwise, normal upper endoscopy. no source of patient's symptoms seen during procedure. RECOMMENDATIONS: -restart diet and advance as tolerated -anti-emetics and ppi -marijuana cessation discussed with pt will sign off, please call as needed or with questions.
[2019-05-01] MEDS ORDERED: ZOFRAN ONE (11:19)
--- NOTE | 2019-05-01 15:29 | Progress Note ---
Assessment and Plan /-Abdominal pain: Possible colitis Mild improvement of symptoms. We'll continue antibiotics Flagyl and Levaquin. GI following ,normal HIDA scan, abd U/S with moderate GB sludge - no plan for any surgery by GS s/p EGD today showed Mild erythematous gastric fundus mucosa likely from emesis. Otherwise, normal upper endoscopy. no source of patient's symptoms seen during procedure. Resume diet / UTI (urinary tract infection) Emperic antibiotics , afebrile f/u cultures /-Hypokalemia: Replace with Kcl /-Lactic Acidosis: Probably sec to underlying dis process. Resolved /Substance abuse with marijuana, counseled /-DVT prophylaxis: Lovenox Disposition: when tolerates diet, likely tomorrow Brief History Patient is a 39 y/o male with no significant PMH who presented to ED with c/o abdominal pain with associated fever, N/V and dysuria. Upon admission, he was found to have a UTI, along with mild colitis seen on CT. No hx or Fhx of IBD or GI cancer. No prior EGD/colonoscopy. Uses marijuana a couple of times a month (UDS positive). Hospitalist Physical General appearance: Present: no acute distress, obese - EENT Eyes: Present: PERRL, EOM intact - Neck Neck: Present: supple, normal ROM - Respiratory Respiratory effort: normal Respiratory: negative: rales, rhonchi, wheezing - Cardiovascular Rhythm: regular Heart Sounds: Present: S1 & S2 - Extremities Extremities: no ischemia, No edema - Abdominal General gastrointestinal: soft, tender (vague tenderness,no guarding,no rigidity) - Integumentary Integumentary: Present: clear, warm - Psychiatric Psychiatric: appropriate mood/affect, cooperative - Neurologic Neurologic: CNII-XII intact, moves all extremities Subjective Date of service: 05/01/19 Principal diagnosis: colitis Interval history: Patient seen and examined. Medical records and medication list reviewed. No acute event overnight noted by the RN. Patient had EGd today, tolerated well Discussed plan of care at bedside with patient. Objective - Constitutional Vitals: Vital Signs - 12hr 05/01/19 05/01/19 05/01/19 05:16 06:28 10:12 Temperature 98.7 F 99.1 F Pulse Rate 71 118 H 59 L Respiratory 20 14 Rate Blood Pressure 148/104 148/104 157/93 O2 Sat by Pulse 100 99 Oximetry 05/01/19 05/01/19 10:14 12:14 Temperature 99.1 F 99.9 F H Pulse Rate 59 L 64 Respiratory 14 20 Rate Blood Pressure 157/93 165/98 O2 Sat by Pulse 99 100 Oximetry - Labs CBC & Chem 7: 04/28/19 10:46 05/02/19 08:37
[2019-05-01] MEDS: LOVENOX SUB-Q SCH (22:00)
[2019-05-02] MEDS: REGLAN IV SCH ×2 (05:21→16:06)
[2019-05-02] MEDS: PROTONIX PO SCH (09:24)
[2019-05-02] MEDS: SODIUM CHLORIDE FLUSH SYRINGE 10 ML IV SCH (09:24)
[2019-05-02] MEDS: FLAGYL 500 MG/100 ML 500 MG/100 ML BAG IV SCH ×2 (09:25)
[2019-05-02] MEDS: LEVAQUIN 500MG/100ML 500 MG/100 ML BAG IV SCH (09:26)
[2019-05-02 09:48] LABS: BUN/Creatinine Ratio 7; Blood Urea Nitrogen 7 mg/dL (9-20); Calcium 9.1 mg/dL (8.4-10.2); Hemolysis Index 1
[2019-05-02 12:38] VITALS: BP 161/92
[2019-05-02] MEDS: APRESOLINE IV PRN (13:06)
--- NOTE | 2019-05-02 14:53 | Discharge Summary ---
Providers - Providers Date of Admission: 04/26/19 16:26 Date of discharge: 05/02/19 Attending physician: KACY QURESHI 04/26/19 21:37 Consult to Physician [CONS] Routine Comment: Consulting Provider: JUNIOR IVY Physician Instructions: Reason For Exam: colitis 04/30/19 10:05 Consult to Physician [CONS] Routine Comment: Consulting Provider: ANNITA OSEGUERA Physician Instructions: consult surgery Reason For Exam: N/V, GB sludge, possible cholecystectomy [facility] Condition: Stable Pertinent studies: Abdomen/pelvis CT abdomen US HIDA scan Head CT CXR Hospital course: Patient is a 39 y/o male with no significant PMH who presented to ED with c/o abdominal pain with associated fever, N/V and dysuria. Upon admission, he was found to have a UTI, along with mild colitis seen on CT. No hx or Fhx of IBD or GI cancer. No prior EGD/colonoscopy. Uses marijuana a couple of times a month (UDS positive). Patient was admitted for further evaluation and Mx. Discharge diagnosis and management: /-Abdominal pain: Possible colitis Improvement of symptoms. Treated with Flagyl and Levaquin. GI was following ,normal HIDA scan, abd U/S with moderate GB sludge - no plan for any surgery by GS s/p EGD 05/01/19 showed Mild erythematous gastric fundus mucosa likely from emesis. Otherwise, normal upper endoscopy. no source of patient's symptoms seen during procedure. Resumed diet and he was tolerating GI recommended to d/c home in stable condition / UTI (urinary tract infection) treated with Emperic antibiotics /-Hypokalemia: Replaced with Kcl /-Lactic Acidosis: Probably sec to underlying dis process. Resolved /Substance abuse with marijuana, counseled /-DVT prophylaxis: Lovenox Disposition: home Hospitalist Physical General appearance: Present: no acute distress, obese - EENT Eyes: Present: PERRL, EOM intact - Neck Neck: Present: supple, normal ROM - Respiratory Respiratory effort: normal Respiratory: negative: rales, rhonchi, wheezing - Cardiovascular Rhythm: regular Heart Sounds: Present: S1 & S2 - Extremities Extremities: no ischemia, No edema - Abdominal General gastrointestinal: soft, tender (vague tenderness,no guarding,no rigidity) - Integumentary Integumentary: Present: clear, warm - Psychiatric Psychiatric: appropriate mood/affect, cooperative - Neurologic Neurologic: CNII-XII intact, moves all extremities Disposition: DC-01 TO HOME OR SELFCARE Time spent for discharge: 34 minutes Core Measure Documentation - Palliative Care Palliative Care/ Comfort Measures: Not Applicable - Core Measures Any of the following diagnoses?: none Exam - Constitutional Vitals: Temp Pulse Resp BP Pulse Ox 98.7 F 63 20 161/92 99 05/02/19 11:42 05/02/19 11:42 05/02/19 11:42 05/02/19 13:06 05/02/19 11:42 Plan Activity: advance as tolerated Weight Bearing Status: Weight Bear as Tolerated Diet: advance as tolerated Follow up with: CRISTIAN ALEJO MD [Primary Care Provider] - 7 Days Forms: Work/School Release Form Prescriptions: Ciprofloxacin HCl [Ciprofloxacin TAB] 500 mg PO Q12HR #4 tab metroNIDAZOLE [Flagyl] 500 mg PO Q8HR #6 tablet Potassium Chloride [K-Dur] 20 meq PO BID #6 tab Pantoprazole [Protonix] 40 mg PO QDAY #14 tablet Metoclopramide HCl [Reglan TAB] 5 mg PO TIDAC #20 tablet
[2019-05-02] MEDS ORDERED: K-DUR PO NR (15:45)
[2019-05-02 16:00] LABS: BUN/Creatinine Ratio 7; Blood Urea Nitrogen 7 mg/dL (9-20); Calcium 9.3 mg/dL (8.4-10.2); Hemolysis Index 14
== END 2019-05-02 17:15 | disposition home or self-care (01) | DRG 690 ==
LOC: ED 12:34 → 3A 16:26
PROVIDERS: ADMIT Internal Medicine; ATTEND Internal Medicine
PROC: 0DJ08ZZ Inspection of Upper Intestinal Tract, Via Natural or Artificial Opening Endoscopic (ICD-10-PCS; principal; 2019-05-01)
DX: N39.0 Urinary tract infection, site not specified (principal); E87.2 Acidosis; K52.9 Noninfective gastroenteritis and colitis, unspecified; R94.31 Abnormal electrocardiogram [ECG] [EKG]; R79.89 Other specified abnormal findings of blood chemistry; M10.9 Gout, unspecified; F12.90 Cannabis use, unspecified, uncomplicated; E87.6 Hypokalemia; F19.10 Other psychoactive substance abuse, uncomplicated; F17.200 Nicotine dependence, unspecified, uncomplicated; Z71.51 Drug abuse counseling and surveillance of drug abuser; Z88.0 Allergy status to penicillin; Z79.899 Other long term (current) drug therapy; Z82.49 Family history of ischemic heart disease and other diseases of the circulatory system
CPT/HCPCS: 36415; 70450; 71045; 74176; 76700; 78227; 80048; 80053; 80307; 81001; 82140; 82550; 82553; 82962; 83690; 83735; 83880; 84443; 84484; 85025; 85610; 85730; 86850; 86900; 86901; 87040; 87086; 93005; 93010; G0378; A9537; C9113; J0360; J0696; J1170; J1650; J1956; J2405; J2543; J2704; J2765; J2805; J7030